=== PATIENT | male | born 1980 | race Caucasian/White ===

== ENCOUNTER 2024-02-08 09:47 | Outpatient (CLI) | payer OTHER ==
--- NOTE | 2024-02-08 10:59 | Sleep Patient Instructions ---
Sleep Center Visit Summary - Patient Visit Information Reason for Visit: Initial consult for evaluation of sleep disordered breathing and other sleep issues. - Patient Instructions Instructions Attached: Sleep Study Additional Instructions: You will be completing a sleep study, either an in-lab polysomnography (PSG) or home sleep study (HST). You will follow-up in the sleep care office after the sleep study is completed to hear the results and talk about therapy, if needed. You will be called by our office staff to schedule this appointment, but you may contact us with any questions. - Clinic Information Contact: [facility] [address] [place] [address] [email or web address] T: [phone]
--- NOTE | 2024-02-08 11:00 | SLEEP CARE CONSULTATION ---
Information from patient questionnaire entered by Rony Payan. I have reviewed and concur with the information entered by Rony Payan. This document represents the service I personally performed and the decisions made by me, Barb Taylor ARNP. History of Present Illness Service Date and Time: 02/08/2024 09 Reason for Visit: New patient Chief Complaint: reports: Insomnia, Snoring, Observed pauses in breathing Date of Onset: 2001 Usual bedtime: 0100 - 0200 Time it takes to fall asleep: 30 - 40 mins Snores at night: Yes Observed to quit breathing while asleep: Yes Sleeps alone due to snoring: No Number of times waking at night: Once Reasons for waking at night: reports: Snoring, Other (Noise) Toss, Turn, or Twitch while sleeping: Yes Recalls having dreams: No Usually gets out of bed at: 0700 - 0800 Feels refreshed in the morning: No Morning headache: No Sleepy or fatigued during the day: Yes Ever fallen asleep while driving: No Takes day naps: Yes Dreams during day naps: No Prior sleep studies: No Additional HPI information: I had the pleasure of seeing DOMI DUNAWAY today regarding the possibility of him having a sleep disorder. His current complaints are insomnia, observed pauses in breathing and snoring. He has had sleep issues for a while and is here for evaluation. He says he has a hard time falling asleep and when he falls asleep he will wake up easily from noises. His says he snores a lot and has stopped breathing in his sleep. The patient tells me that he normally goes to bed around 1-2 AM, and it takes him approximately 30-40 minutes to fall asleep. He has been told that he snores loudly and irregularly at night. He has been observed to stop breathing in his sleep. His bed partner can still sleep in the same bed. He can recall waking up on the average of once during the night. Most of the time he wakes up because of noise. He has not awakened for his own snoring, choking, and having to gasp for air. There is a lot of tossing and turning in his sleep. Generally there is no recollection of dreams. He usually wakes up at 0700 and does not feel refreshed. He usually does not have a morning headache. During the day he complains of feeling sleepy and fatigued. He has never fallen asleep while driving nor has any accident due to sleepiness. He usually naps for about 30-40 minutes during the day. If he naps, upon falling asleep during the day he denies having vivid dreams. There is somniloquy (sleep talking) but no somnambulism (sleep walking). He has experienced sleep paralysis but not often and has never experienced cat aplexy, or symptoms of restless leg syndrome. He reports having impaired concentration during the day. 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 Patient is and lives in [place]. Have you smoked in the past 12 months: No Alcohol use: Yes Alcohol amount and frequency: 2 - 3 daily Caffeine use: Yes Caffeine amount and frequency: 2 - 3 DAILY Family History Family history of sleep disordered breathing: No Allergies and Home Medications Known drug allergies: No Drug allergies reviewed: Yes Home medication list reviewed: Yes (as listed) Allergy and home medication list: Allergies No Known Drug Allergies Allergy (Verified 02/08/24 10:51) Home Medications Zocor See Rx Instructions .ROUTE .COMPLEX 02/08/24 [History] Review of Systems Weight loss over past 5 years: 30 Cardiovascular: reports: palpitations (with energy drinks) Respiratory: reports: chronic cough Gastrointestinal: reports: heartburn, diarrhea, abdominal pain Neurological: reports: gait or balance problems. denies: headaches Psychiatric: reports: Attention Deficit Hyperactivity (diagnosed younger, no treatment currently), depression Ear/Nose/Throat: reports: nasal congestion, sinus problems, nose bleeds. denies: tonsillectomy Musculoskeletal: reports: joint pain (/stiffness), neck pain, back pain, joint swelling, muscle pain or cramping, mobility problems Immunologic: reports: sneezing (/runny nose), itching Physical Exam Vital signs obtained and entered by: Barb Deal NP Blood Pressure: 141/93 Cuff size: long (right arm) Heart Rate: 87 O2 Saturation: 96 Height: 5 ft 10 in Weight: 226 lb Body Mass Index: 32.4 BMI Classification: Obese Neck circumference: 16.5 (inches) Mouth and throat: narrow oropharynx Soft palate: long Hard palate: normal Uvula: long Uvula visualization: 25% Mallampati Class III Tongue: enlarged in size with teeth mcgowan on lateral edges Tonsils: 2+ Neck: normal w/o lymphadenopathy or thyromegaly Heart: regular rate and rhythm Lungs: clear bilaterally Impression and Plan 1. Suspected Obstructive Sleep Apnea-Hypopnea Syndrome, as suggested by a history of loud and irregular snoring, observed cessation of breath while asleep, frequent awakening during the night, unrefreshed sleep, cognitive impairment, and excessive daytime sleepiness. Narrow oropharynx and obesity are common predisposing factors for obstructive sleep apnea-hypopnea syndrome. I recommend proceeding to polysomnography to confirm the diagnosis and to assess severity. If the patient has significant sleep disordered breathing, a manual CPAP titration study will also be performed to find the optimal treatment pressure. I informed the patient of what the sleep studies involve and after some discussion, obtained agreement to proceed. The pathophysiology of obstructive sleep apnea-hypopnea syndrome was discussed with the patient and health risks of cardiovascular and cerebrovascular disease if not treated. Risks of drowsy driving discussed in detail and patient advised to avoid long distance driving and to pulley man at the first sign of drowsiness. Patient agreed to plan. * Schedule polysomnography. * Avoid long distance driving or driving when feeling sleepy. * Avoid alcohol, sedative and muscle relaxant around bedtime. * Attempt to lose weight. * Review instructions provided by trained office staff on how to prepare for the sleep study. * Return for follow-up after sleep study completed. Counseling Topics: Weight loss health impact Plan: PSG Visit Type: In Office Time Spent with Patient (minutes): 30 Provider Statement: I spent 100% of the Face to Face Visit with the patient with greater than 50% spent counseling the patient and coordination of care.
[2024-02-08 11:05] VITALS: BP 141/93; O2SAT 96
== END 2024-02-08 09:48 | disposition home or self-care (01) ==
LOC: SC 09:47
PROVIDERS: ATTEND Nurse Practitioner Family
DX: R06.83 Snoring (principal); R06.81 Apnea, not elsewhere classified; G47.8 Other sleep disorders; R41.89 Other symptoms and signs involving cognitive functions and awareness; G47.10 Hypersomnia, unspecified; R53.83 Other fatigue; E66.9 Obesity, unspecified; Z68.32 Body mass index [BMI] 32.0-32.9, adult
CPT/HCPCS: 99203; 99212

== ENCOUNTER 2024-03-26 19:33 | Outpatient (CLI) | payer OTHER | END 2024-03-26 19:34 | disposition home or self-care (01) | LOC: SC 19:33 | PROVIDERS: ATTEND Nurse Practitioner Family | DX: G47.33 Obstructive sleep apnea (adult) (pediatric) (principal); G47.61 Periodic limb movement disorder; E66.9 Obesity, unspecified; Z68.32 Body mass index [BMI] 32.0-32.9, adult | CPT/HCPCS: 95810 ==

== ENCOUNTER 2024-04-21 13:54 | Outpatient (CLI) | payer OTHER ==
--- NOTE | 2024-04-21 20:09 | SLEEP CARE CONSULTATION ---
Information from patient questionnaire entered by Tru Law. I have reviewed and concur with the information entered by Tru Law. This document represents the service I personally performed and the decisions made by me, Asad Cummings MD, [facility]. History of Present Illness Service Date and Time: 04/21/2024 1354 Initial [place] Sleepiness Scale score: 12 (in 2023) Current [place] Sleepiness Scale score: 16 (04/21/24) Additional HPI information: Mr. Bojorquez returned for follow up of the sleep study he had on 03/26/24. The polysomnography showed that The patient had normal sleep efficiency. The sleep architecture was abnormal for sleep fragmentation and reduced amount of time spent in REM and slow wave sleep (N3). Respiratory monitoring showed severe obstructive sleep apnea-hypopnea (AHI = 32.0) associated with frequent arousals, oxyhemoglobin desaturation and mild hypoxia (jimbo oxygen saturation of 81%). The respiratory events occurred mainly during supine sleep (supine AHI = 55.8; non-supine = 19.34). Snore was light to moderate in intensity. There was moderate periodic leg movement of sleep not contributing to the sleep fragmentation. Cardiac rhythm was normal sinus rhythm without significant arrhythmia. No abnormal behavior (parasomnia) observed during the night. The patient was informed of these findings. I explained to him the pathoph ysiology behind obstructive sleep apnea. We then spent quite a bit of time discussing different treatment options. For mild obstructive sleep apnea, surgery and oral appliance are alternatives to nasal CPAP therapy but in moderate or severe cases, nasal CPAP is the most effective and reliable treatment. Weight loss in an obese individual is strongly recommended. After some discussion, he opted to go with the nasal CPAP therapy. I explained to him how CPAP machine works and what to expect when using the machine. Sleep Study - Results Type of Sleep Study: Polysomnography (COMPLETED ) Prior sleep studies: No Allergies and Home Medications Drug allergies reviewed: Yes Home medication list reviewed: Yes Allergy and home medication list: Allergies No Known Drug Allergies Allergy (Verified 02/08/24 10:51) Review of Systems Review of systems same as previous: Yes (NO CHANGE) Physical Exam Vital signs obtained and entered by: TRU Martinez MA Blood Pressure: 132/95 (RIGHT ARM) Cuff size: regular Heart Rate: 89 O2 Saturation: 100 Height: 5 ft 10 in Weight: 222 lb Body Mass Index: 31.8 BMI Classification: Obese Impression and Plan IMPRESSION: 1. Obstructive Sleep Apnea-Hypopnea Syndrome, severe, associated with mild hypoxemia and sleep fragmentation. Obviously this is the cause of the patients symptoms of unrefreshed sleep, and excessive daytime sleepiness. As mentioned above, the patient will return for a manual CPAP/BiPAP titration study. PLAN: 1. Schedule a manual CPAP/BiPAP titration study. 2. Return for follow up after the study. Follow up with Sleep Care in: 1-2 months Plan: CPAP titration study Visit Type: In Office Time Spent with Patient (minutes): 15 Provider Statement: I spent 100% of the Face to Face Visit with the patient with greater than 50% spent counseling the patient and coordination of care.
[2024-04-21 20:15] VITALS: BP 132/95; O2SAT 100
== END 2024-04-21 13:55 | disposition home or self-care (01) ==
LOC: SC 13:54
PROVIDERS: ATTEND Internal Medicine Pulmonary Disease
DX: G47.33 Obstructive sleep apnea (adult) (pediatric) (principal); E66.9 Obesity, unspecified; Z68.31 Body mass index [BMI] 31.0-31.9, adult
CPT/HCPCS: 99212

== ENCOUNTER 2024-05-14 20:29 | Outpatient (CLI) | payer OTHER | END 2024-05-14 20:30 | disposition home or self-care (01) | LOC: SC 20:29 | PROVIDERS: ATTEND Internal Medicine Pulmonary Disease | DX: G47.33 Obstructive sleep apnea (adult) (pediatric) (principal); G47.61 Periodic limb movement disorder | CPT/HCPCS: 95811 ==

== ENCOUNTER 2024-07-08 09:35 | Outpatient (CLI) | payer OTHER ==
--- NOTE | 2024-07-08 09:17 | SLEEP CARE CONSULTATION ---
Information from patient questionnaire entered by Rony Payan. I have reviewed and concur with the information entered by Rony Payan. This document represents the service I personally performed and the decisions made by , Barb Taylor ARNP. History of Present Illness Service Date and Time: 07/08/2024 0900 Initial [place] Sleepiness Scale score: 12 (in 2023) Current [place] Sleepiness Scale score: 8 (07/08/24) Additional HPI information: DOMI DUNAWAY returns for follow up of a manual CPAP titration study performed on 05/14/2024. Previous study done on 03/26/2024 showed severe obstructive sleep apnea with AHI 32. The patient was informed of the following polysomnography findings: CPAP was initiated at 5 cmH2O and titrated up to CPAP at 17 cmH2O. CPAP at 17 cmH2O appeared to be optimal (AHI of 3.1 per hour on the pressure). Lower CPAP settings allowed frequent residual respiratory events. The patient appeared to have tolerated positive airway pressure therapy well. The patients sleep efficiency was minimally reduced. He was seen to have mild periodic leg movement of sleep. I explained how CPAP machine works and what to expect when using the machine. Using CPAP every night in order to get used to it was emphasized. Patient advised to put CPAP mask on before getting into bed so as not to fall asleep without CPAP. To assist acclimation to CPAP use, it could also be used for a short time during day while reading or watching TV. The patient was instructed to call the CPAP supplier to discuss any mechanical problem that may occur. If the mask given is uncomfortable or is difficult to keep on through the night even with adjustment, contact the CPAP supplier as many will replace with another mask style if notified before 30 days. If snoring or perceives is not getting enough air or too much air from the machine, notify this office. Patient counseled not drink alcohol less than 4 hours before bedtime as it can increase snoring and apnea. Patient was cautioned about risks of drowsy driving until sleepiness symptoms resolve. Patient denies drowsy driving. Sleep Study - Results Type of Sleep Study: Polysomnography Prior sleep studies: No Polysomnography/Home Sleep Study results: IMPRESSION: The quality of the study is good. CPAP was initiated at 5 cmH2O and titrated up to CPAP at 17 cmH2O. CPAP at 17 cmH2O appeared to be optimal (AHI of 3,1 per hour on the pressure). There was no REM or sleep on the pressure. Oxygen saturation was 0.16%. Lower CPAP settings allowed frequent residual respiratory events. The patient appeared to have tolerated positive airway pressure therapy well. The patients sleep efficiency was minimally reduced. The sleep architecture was abnormal for sleep fragmentation and reduced amount of time spent in REM sleep. There was mild periodic leg movement of sleep (8.9) contributing to the sleep fragmentation. Cardiac rhythm was normal sinus rhythm without significant arrhythmia. No abnormal behavior (parasomnia) observed during the night. CONCLUSIONS and RECOMMENDATIONS: 1. Obstructive sleep apnea-hypopnea (ICD-10 G47.33), severe (AHI was 32.0), adequately controlled with CPAP at 17 cmH2O. CPAP therapy is, therefore, recommended at the pressure setting. AutoCPAP set between 15 and 20 cmH20 is also appropriate. Mask used was a [employer] Wisp nasal mask size XL. With BMI of 32.4 Kg/M2, weight loss is also recommended. 2. Periodic leg movement of sleep (ICD G47.61), mild, treatment may be indicated. Clinical correlation advised. Allergies and Home Medications Known drug allergies: No Allergy and home medication list: Allergies No Known Drug Allergies Allergy (Verified 07/03/24 13:52) Physical Exam Vital signs obtained and entered by: Barb Deal NP Height: 5 ft 10 in Weight: 218 lb Body Mass Index: 31.2 BMI Classification: Obese Impression and Plan 1. Obstructive Sleep Apnea-Hypopnea Syndrome, severe. Patient returned for results of titration study on May 14, 2024. His optimal pressure appeared to be 17 cmH2O. There was a recommendation that 15-20 cmH2O was also adequate. He had mild periodic leg movements of sleep that did contribute to sleep fragmentation. As mentioned above, the patient will be started on nasal autoCPAP therapy with pressure set at 15-20 cmH2O. Compliance guidelines also reviewed. A copy of compliance guidelines will be given for reference at check out. 2. Periodic limb movement, mild, that did contribute to the fragmentation of patients sleep. Periodic limb movement of sleep (PLMS) is characterized by episodes of repetitive limb movements that occur during sleep and usually involve the lower limbs. The etiology is unknown. Caffeine can also aggravate PLMS and should be avoided. Sleep hygiene methods can also improve sleep as well as lifestyle changes such as regular exercise. Patient was advised that no treatment is needed at this time. If symptoms increase, then further evaluation is indicated. 3. Obesity, unspecified. Currently patients BMI is 31.2. Obesity increases the risk of apnea, CPAP pressure requirements and overall health risks especially cardiovascular and diabetes. Thus patient is advised to lose weight. * Nasal auto CPAP therapy, pressure at 15-20 cmH2O. * Attempt to lose weight. * Avoid alcohol consumption near bedtime. * Avoid supine sleep until using CPAP. * The patient is again cautioned about driving until sleepiness completely resolves. * Return one month after CPAP obtained. I will assess response to therapy and compliance at that time. Counseling Topics: Weight loss health impact Prescriptions: Auto CPAP Follow up with Sleep Care in: other (compliance follow up) Visit Type: Telehealth Phone Video Type: [place] Patient Location: Work Location of Provider: Office Patient agrees and consents to this telehealth visit type: Yes Patient agrees to have their insurance billed: Yes Time Spent with Patient (minutes): 20 Provider Statement: I spent 100% of the Telehealth Phone Call with the patient with greater than 50% spent counseling the patient and coordination of care.
== END 2024-07-08 09:36 | disposition home or self-care (01) ==
LOC: SC 09:35
PROVIDERS: ATTEND Nurse Practitioner Family
DX: G47.33 Obstructive sleep apnea (adult) (pediatric) (principal); G47.61 Periodic limb movement disorder; E66.9 Obesity, unspecified; Z68.31 Body mass index [BMI] 31.0-31.9, adult
CPT/HCPCS: 99442